=== PATIENT | female | born 1960 | race Caucasian/White ===

== ENCOUNTER 2018-02-28 20:44 | Emergency (ER) | payer BC ==
--- OUTSIDE RECORDS SUMMARY | 2018-02-28 20:49 | XMS REPORT ---
:1960 External Reference #:[id number] Author Organization [facility] Address [address] [place] [address] Phone [phone] Care Team Providers Name Role Phone Jorge Jacobson MD Primary Care Physician Unavailable Payers Type Date Identification Numbers Payment Provider Subscriber Medicare Primary Expires: Policy Number: Medicare Veronica Baca 2013 [id number] [employer] Group Number: [id number] [address] [address] PayID: [id number] [place] [address] Medigap Part B Policy Number: [employer] / Sanam Bone [id number] [facility] Group Number: [id number] [address] [address] PayID: [id number] [place] [address] Problems Description No Active Problems Family History Date Family Member(s) Problem(s) Comments Father Depression Father due to Prostate Cancer () Father Alcoholism Father Drug Addiction Father Hypertension Father Arthritis Mother due to Pancreatic Cancer () Children None Siblings 1 First Brother A&W Paternal Grandfather due to NV () Paternal Grandmother due to Heart Disease () Maternal Grandfather due to Heart Disease () Maternal Grandmother due to d/t blood clot () Maternal Grandmother Uterine Cancer Social History Type Date Description Comments Education Highest Level Completed, Master's Degree Marital Status Lives With Spouse Occupation Retired Cigarette Use Does Not Smoke Cigarettes Cigarette Use Former Cigarette Smoker 5-10 on/off 5-8 years Cigarettes Daily ETOH Use Consumes 1 glass of wine per day Recreational Drug Use Denies Drug Use Smoking Patient is a former smoker Daily Caffeine Consumes on average 2 cups of coffee per day Exercise Type/Frequency Exercises regularly Seat Belt/Car Seat Always uses seat belt Currently Active Patient is currently sexually active Contraceptive Methods Current methods include tubal ligation STD's HPV Allergies, Adverse Reactions, Alerts Date Description Reaction Status Severity Comments 06/29/2013 NKDA active Medications Medication Date Status Form Strength Qnty SIG Indications Ordering Provider No Active 02/22/2018 Active Unknown Medications No Active 12/15/2015 Hx Unknown Medications - 01/03/2017 No Active 06/29/2013 Hx Lexy Agustin, Medications - ANP-C 11/14/2013 Vitamin D-3 Hx Unknown - 12/15/2015 Multivitamins Hx Unknown - 12/15/2015 Fish Oil Hx Unknown - 12/22/2013 Aspir-81 Hx Unknown - 12/15/2015 Ambien Hx Unknown - 02/22/2018 Medications Administered in Office Medication Date Status Form Strength Qnty SIG Indications Ordering Provider PT SCRN Tbco Administered Injection Beulah Cason as Non User 018 MD Lorie Vital Signs Date Vital Result Comment 02/22/2018 BP Systolic 110 mmHg BP Diastolic 70 mmHg Height 66 inches 5'6" Weight 148.00 lb BMI (Body Mass Index) 23.9 kg/m2 Last Menstrual Period 2921917 1 Parity 0 01/03/2017 BP Systolic 114 mmHg BP Diastolic 60 mmHg Height 66 inches 5'6" Weight 148.00 lb BMI (Body Mass Index) 23.9 kg/m2 Last Menstrual Period 7488856 1 Parity 0 12/15/2015 BP Systolic 110 mmHg BP Diastolic 64 mmHg Height 66 inches 5'6" Weight 146.00 lb BMI (Body Mass Index) 23.6 kg/m2 Last Menstrual Period 5014247 1 Parity 0 05/24/2014 BP Systolic 104 mmHg BP Diastolic 66 mmHg Height 66 inches 5'6" Weight 148.00 lb BMI (Body Mass Index) 23.9 kg/m2 Last Menstrual Period 1355286 1 Parity 0 04/22/2014 BP Systolic 106 mmHg BP Diastolic 60 mmHg Height 66 inches 5'6" Weight 143.00 lb BMI (Body Mass Index) 23.1 kg/m2 Last Menstrual Period 3920224 1 Parity 0 01/22/2014 BP Systolic 104 mmHg BP Diastolic 68 mmHg Height 66 inches 5'6" Weight 144.00 lb BMI (Body Mass Index) 23.2 kg/m2 Last Menstrual Period 9887482 1 Parity 0 12/11/2013 BP Systolic 104 mmHg BP Diastolic 60 mmHg Height 66 inches 5'6" Weight 147.00 lb BMI (Body Mass Index) 23.7 kg/m2 Last Menstrual Period 8093808 1 Parity 0 11/14/2013 BP Systolic 102 mmHg BP Diastolic 64 mmHg Height 66 inches 5'6" Weight 147.00 lb BMI (Body Mass Index) 23.7 kg/m2 Last Menstrual Period 8427430 1 Parity 0 06/29/2013 BP Systolic 100 mmHg BP Diastolic 70 mmHg Height 66 inches 5'6" Weight 145.00 lb BMI (Body Mass Index) 23.4 kg/m2 Last Menstrual Period 1330353 1 Parity 0 Results Test Date Test Result H/L Range Note Laboratory test finding 01/03/2017 Cytology SEE RESULT BELOW 1 Human Papilloma Virus Rna Negative Negative 2 Laboratory test finding 12/15/2015 Cytology SEE RESULT BELOW 3 Human Papilloma Virus Rna Negative Negative 4 Laboratory test 06/21/2014 Surgical Pathology RUN DATE: finding <SEE NOTE> CBC Auto Diff 06/21/2014 White Blood Count 5.9 10^3/uL 4.8-10.8 Red Blood Count 3.98 10^6/uL Low 4.0-5.4 Hemoglobin 12.5 g/dL 12.0-16.0 Hematocrit 37 % 35-47 Mean Corpuscular Volume 92 fL 80-97 Mean Corpuscular Hemoglobin 31 pg 27-31 Mean Corpuscular HGB Conc 34 g/dL 31-36 Red Cell Distribution Width 13 % 10.5-15 Platelet Count 187 10^3/uL 150-450 Mean Platelet Volume 10 um3 7.4-10.4 Abs Neutrophils 3.7 10^3/uL 1.5-7.7 Abs Lymphocytes 1.6 10^3/uL 1.0-4.8 Abs Monocytes 0.4 10^3/uL 0-0.8 Abs Eosinophils 0.1 10^3/uL 0-0.6 Abs Basophils 0.1 10^3/uL 0-0.2 Abs Nucleated RBC 0 10^3/uL Granulocyte % 62.4 % 38-83 Lymphocyte % 27.7 % 25-47 Monocyte % 7.0 % 1-9 Eosinophil % 1.7 % 0-6 Basophil % 1.2 % 0-2 Nucleated Red Blood Cells % 0 Laboratory test 12/11/2013 Surgical Pathology RUN DATE: finding <SEE NOTE> Thyroid Function 11/14/2013 Thyroid Stim Hormone 1.8 mIU/L 0.3-5.0 7 Beryl Human Papilloma 07/02/2013 Human Papillomavirus See Comment 8 Source Human Papillomavirus High Risk Negative Negative 9 Laboratory test finding 06/29/2013 Cytology RUN DATE: <SEE neg / 10 NOTE> 1 SEE RESULT BELOW Name: SANAM BONE : [address]: Lexy Pinto Acct: [id number] Unit: [id number] AGE: 56 Location: [facility] Re01/03/17 SEX: F Status: REG REF SPEC: [id number] BOUBACAR: 01/03/17-[address] [facility] DR: Lexy Pinto REQ: [id number] RECD: 01/03/179 STATUS: SOUT _ ORDERED: IMAGE ANALYSIS, HPV/Thin Prep COMMENTS: [id number] FINAL DIAGNOSIS Negative for Intraepithelial lesion or Malignancy A. Ectocervical/Endocervical Specimen Adequacy: Satisfactory of evaluation Transformation zone component identified Patient Information: HPV: High risk HPV RNA testing regardless of pap results. Actual Specimen Date: 01/03/17 Last Menstrual Date: 06/10/15 Date of Last Specimen: 06/16/16 Post Menopausal?: Y Date Time Test Result Flag (u) Normal Range 01/03/17 0810 HPV RNA Negative Negative The high-risk HPV types detected by the assay include: 16, 18, 31, 33, 35, 39, 45, 51, 52, 56, 58, 59, 66, and 68. Signed (signature on file) WALTER Valdez ([facility]) 01/04 1529 This Pap test was evaluated with the assistance of the [employer] Test Imaging System. Due to cytologic findings at the terminal gauger supervisor microscope, comprehensive manual rescreening by a Sebd Teacher may be required. The Pap Smear is a screening test designed to aid in the detection of premalignant and malignant conditions of the uterine cervix. It is not a diagnostic procedure and should not be used as the sole means of detecting cervical cancer. Both false- positive and false- negative reports do occur. Depending on your risk status, a Pap smear should be obtained and evaluated every 1-3 years. END OF REPORT * ML=Testing performed at Main Lab DEPARTMENT OF PATHOLOGY, [address] [place] [address] Chaz Mcneil M.D. Director [facility] # [id number] 2 The high-risk HPV types detected by the assay include: 16, 18, 31, 33, 35, 39, 45, 51, 52, 56, 58, 59, 66, and 68. 3 SEE RESULT BELOW Name: SANAM BONE : [address]: Lexy Agustin SIZING MACHINE TENDER Acct: [id number] Unit: [id number] AGE: 55 Location: [facility] Re12/15/15 SEX: F Status: REG REF SPEC: [id number] BOUBACAR: 12/15/[address] [facility] DR: Lexy Agustin SIZING MACHINE TENDER REQ: [id number] RECD: 12/15/15 STATUS: SOUT _ ORDERED: IMAGE ANALYSIS, HPV/Thin Prep FINAL DIAGNOSIS Negative for Intraepithelial lesion or Malignancy A. Ectocervical/Endocervical Specimen Adequacy: Satisfactory of evaluation Transformation zone component identified Patient Information: HPV: High risk HPV RNA testing regardless of pap results. Actual Specimen Date: 12/15/15 Last Menstrual Date: 06/10/15 Date of Last Specimen: 06/29/13 Date Time Test Result Flag (u) Normal Range 12/15/15 0922 HPV RNA Negative Negative The high-risk HPV types detected by the assay include: 16, 18, 31, 33, 35, 39, 45, 51, 52, 56, 58, 59, 66, and 68. Signed (signature on file) WALTER Carter([facility]) 12/15 1311 This Pap test was evaluated with the assistance of the AltimetPrep Test Imaging System. Due to cytologic findings at the terminal gauger supervisor microscope, comprehensive manual rescreening by a Sebd Teacher may be required. The Pap Smear is a screening test designed to aid in the detection of premalignant and malignant conditions of the uterine cervix. It is not a diagnostic procedure and should not be used as the sole means of detecting cervical cancer. Both false- positive and false- negative reports do occur. Depending on your risk status, a Pap smear should be obtained and evaluated every 1-3 years. END OF REPORT * ML=Testing performed at Main Lab DEPARTMENT OF PATHOLOGY, [address] [place] [address] Chaz Mcneil M.D. Director [facility] # [id number] 4 The high-risk HPV types detected by the assay include: 16, 18, 31, 33, 35, 39, 45, 51, 52, 56, 58, 59, 66, and 68. 5 RUN DATE: 06/24/14 [facility] LAB LIVE PAGE 1 RUN TIME: [address] [place] [address] Specimen Inquiry Name: BETH BONECA : [address]: Jenn Bose MD Acct: [id number] Unit: [id number] AGE: 54 Location: [place] Re06/21/14 SEX: F Status: REG [facility] SPEC: [id number] BOUBACAR: 06/21/14- SUBM DR: Jenn Bose MD REQ: [id number] RECD: 06/21/14-1155 STATUS: SOUT _ ORDERED: LEVEL IV FINAL DIAGNOSIS Uterus, endometrium, curettings: A. Secretory endometrium with glandular and stromal breakdown. B. No evidence of hyperplasia or neoplasia. PRE-OPERATIVE DIAGNOSIS Post coital bleeding. GROSS DESCRIPTION The specimen is received in formalin labeled Sanam Bone, Endometrial Curettings, and consists of a 2.3 x 1.7 x 0.5 cm. aggregate of predominantly red-brown blood clot admixed with martinez-pink, irregular soft tissue fragments. Submitted entirely, one cassette. Signed (signature on file) Chaz Mcneil MD 1534 END OF REPORT * ML=Testing performed at Main Lab DEPARTMENT OF PATHOLOGY, [facility] [employer] [place] [address] Chaz Mcneil M.D. Director [facility] # [id number] 6 RUN DATE: 12/12/13 [facility] LAB LIVE PAGE 1 RUN TIME: [address] [place] [address] Specimen Inquiry Name: SMITHASANAM : [address]: Lexy Agustin CNP Acct: [id number] Unit: [id number] AGE: 53 Location: [facility] Re12/11/13 SEX: F Status: REG REF SPEC: [id number] BOUBACAR: 12/11/13-[address] [facility] DR: Lexy Agustin [facility] REQ: [id number] RECD: 12/11/13 STATUS: SOUT _ ORDERED: LEVEL IV FINAL DIAGNOSIS Uterus, endometrium, biopsy: A. Benign inactive endometrium. B. No evidence of hyperplasia or neoplasia. PRE-OPERATIVE DIAGNOSIS Post coital bleeding GROSS DESCRIPTION The specimen is received in formalin labeled TOMMY Abrams and consists of a 0.5 x 0.5 x 0.2 cm. aggregate of multiple, martinez-pink, irregular, soft tissue fragments. Submitted entirely, one cassette. Signed (signature on file) Chelsey Monique MD 02/20 1659 END OF REPORT * ML=Testing performed at Main Lab DEPARTMENT OF PATHOLOGY, [address] [place] [address] Chaz Mcneil M.D. Director [facility] Permit #[id number] 7 Test Performed by: [address] [address] Optics Test Technician: Daniel Brock III, M.D. 8 RESULT: Ectocervical/Endocervical 9 For types 16, 18, 31, 33, 35, 39, 45, 51, 52, 56, 58, 59 and 68. Test Performed by: [address] [address] Optics Test Technician: Daniel Brock III, M.D. 10 RUN DATE: 07/02/13 [facility] LAB LIVE PAGE 1 RUN TIME: [address] [place] [address] Specimen Inquiry Name: SARANIRALIMCKENZIESANAM : [address]: Lexy Agustin SIZING MACHINE TENDER Acct: [id number] Unit: [id number] AGE: 53 Location: [facility] Re06/29/13 SEX: F Status: REG REF SPEC: [id number] BOUBACAR: 06/29/13-[address] [facility] DR: Lexy Agustin SIZING MACHINE TENDER REQ: [id number] RECD: 06/29/13 STATUS: SOUT _ ORDERED: IMAGE ANALYSIS, HPV/Thin Prep FINAL DIAGNOSIS Negative for Intraepithelial lesion or Malignancy COMMENTS: Specimen sent to [facility] in [place], [place] on 07/02/13 by [id number] at 1245. Results will be reported separately. A. Ectocervical/Endocervical Specimen Adequacy: Satisfactory of evaluation Transformation zone component identified Patient Information: HPV: High risk HPV DNA testing regardless of pap results. Actual Specimen Date: 06/29/13 Last Menstrual Date: 05/18/13 Spec Date if unknown: 2011 Signed (signature on file) WALTER Wolfe ([facility]) 07/02/13 1452 This Pap test was evaluated with the assistance of the AltimetPrep Test Imaging System. Due to cytologic findings at the terminal gauger supervisor microscope, comprehensive manual rescreening by a Sebd Teacher may be required. The Pap Smear is a screening test designed to aid in the detection of premalignant and malignant conditions of the uterine cervix. It is not a diagnostic procedure and should not be used as the sole means of detecting cervical cancer. Both false- positive and false- negative reports do occur. Depending on your risk status, a Pap smear shoudl be obtained and evaluated every 1-3 years. END OF REPORT * ML=Testing performed at Main Lab DEPARTMENT OF PATHOLOGY, [address] [place] [address] Chaz Mcneil M.D. Director [facility] Permit #[id number] Procedures Date CPT Code Description Status 01/05/2018 Mammogram Completed 06/21/2014 07959 Hysteroscopy,D&C Completed 01/22/2014 27255 Echography Transvaginal Completed 12/11/2013 54096 Echography Transvaginal Completed 12/11/2013 55220 Biopsy Endometrial W/O Cervical Dilation Completed 02/07/2013 Colonoscopy Completed Encounters Type Date Location Provider CPT E/M Dx Office Visit 02/22/2018 1:00p [place] [address] Z01.411 N39.3 Office Visit 01/03/2017 8:00a [facility] BARBARA Buckner 29246 Z01.419 Office Visit 12/15/2015 8:40a [facility] BARBARA [place] 85460 Z01.419 Office Visit 05/24/2014 8:00a [place] [address] V72.83 626.7 Office Visit 04/22/2014 8:20a [facility] Office Lexy Agustin, ANP-C 26551 626.7 Office Visit 01/22/2014 10:00a [facility] Office Lexy Agustin, ANP-C 75230 620.2 Office Visit 12/11/2013 9:00a [facility] Lexy Agustin, ANP-C 03669 626.7 789.9 Office Visit 11/14/2013 9:40a [facility] Office Lexy Agustin, ANP-C 08137 626.8 V78.0 Office Visit 06/29/2013 9:20a [facility] Office Lexy Agustin, ANP-C 22747 V72.31 V76.2 Plan of Care 02/22/2018 - Lorie Cason MDZ01.411 Encntr for hollow tile partition erector exam (general) (routine) w abnormal findingsComments:Maintain routine exercise and healthy diet. Incorporate weight bearing exercise (walking/running with weights) to help prevent osteoporosis. Try to incorporate calcium into your regular diet. Take Vitamin D supplementation(600-800 IU/day) to assist absorption of the calcium. Call to schedule your yearly mammogram. Once it is scheduled call the office to let us know and we will send an order.Perform periodic breast exams to become familiar with your breast tissue so you are more likely to notice something abnormal. Return for annual exam in 1 year or earlier if concerns arise. Routine cervical cancer screening has changed. For low-risk women pap smears are no longer recommended after 65 years.N39.3 Stress incontinence (female) (male)Comments:Call to schedule an appointment with [facility] ([phone]). Try to do routine Kegel exercises.
--- NOTE | 2018-02-28 20:57 | UC ---
Skin Complaint HPI - HPI Summary HPI Summary: 57 yo female presents with cat ?bite vs scratch to left forearm. 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 She stepped in and broke up the fight. Her cat bit or scratched her on her left forearm - she is unsure as it happened so fast. Her cat is UTD on vaccines. She took her cat to the vet to be checked and vet recommended pt be evaluated and placed on anbx. Denies fever, chills, bleeding, or drainage. - History of Current Complaint Time Seen by Provider: 02/28/18 20:57 Stated Complaint: Cat bite Hx Obtained From: Patient Onset/Duration: Sudden Onset Skin Exposure Onset/Duration: Hours Ago Current Severity: None - Allergy/Home Medications Allergies/Adverse Reactions: Allergies Allergy/AdvReac Type Severity Reaction Status Date / Time No Known Allergies Allergy Verified 02/28/18 20:53 Review of Systems Constitutional: Negative Skin: Other - Cat bite/scratch to left forearm Respiratory: Negative Cardiovascular: Negative Neurovascular: Negative Musculoskeletal: Negative Neurological: Negative Psychological: Negative All Other Systems Reviewed And Are Negative: Yes PMH/Surg Hx/FS Hx/Imm Hx - Additional Past Medical History Additional PMH: None Previously Healthy: Yes - Surgical History Surgical History: Yes Surgery Procedure, Year, and Place: 1997 [facility]. FB REMOVED FROM FOOT. BONE GROWTH REMOVED FROM HUMERUS 1990 - Family History Known Family History: Positive: None - Social History Occupation: Employed Full-time Lives: With Family Alcohol Use: Daily Alcohol Amount: 1/DAY Substance Use Type: None Smoking Status (MU): Former Smoker When Did the Patient Quit Smoking/Using Tobacco: 1990 Physical Exam - Summary Physical Exam Summary: GENERAL: NAD. WDWN. No pain distress. SKIN: Left forearm: 4 puncture wounds consistent with cat bite. NTTP. No edema or erythema. No streaking, bleeding, or drainage. NECK: Supple. Nontender. No lymphadenopathy. CHEST: No accessory muscle use. Breathing comfortably and in no distress. CV: RRR. Without m/r/g. NEURO: Alert. CN II-XII grossly intact. PSYCH: Age appropriate behavior. Triage Information Reviewed: Yes Vital Signs: Vital Signs: Temp Pulse Resp BP Pulse Ox 98.6 F 68 18 103/73 100 02/28/18 20:52 02/28/18 20:52 02/28/18 20:52 02/28/18 20:52 02/28/18 20:52 Course/Dx - Course Course Of Treatment: tdap updated today. Will place her on augmentin and f/u if develops swelling/pain/drainage/redness. - Diagnoses Provider Diagnoses: Cat bite left arm Discharge - Sign-Out/Discharge Documenting (check all that apply): Discharge/Admit/Transfer - Discharge Plan Condition: Stable Disposition: HOME Prescriptions: Amoxicillin/Clavulanate TAB* [Augmentin TAB 875*] 875 mg PO BID #14 tab Patient Education Materials: Animal Bite (ED) Referrals: Mayito Alvarado MD [Primary Care Provider] - Additional Instructions: If you develop a fever, shortness of breath, chest pain, new or worsening symptoms - please call your PCP or go to the ED. - Billing Disposition and Condition Condition: STABLE Disposition: HOME
[2018-02-28 20:58] VITALS: BP 103/73
[2018-02-28] MEDS ORDERED: Tetan/Diph/Pertus SYR(Tdap)* 0.5 ML SYR(BOOSTRIX) use SYR IM ONE (21:13)
[2018-02-28] MEDS ORDERED: Amoxicillin/Clavulanate TAB* 875 MG PO ONE (21:13)
== END 2018-02-28 21:23 | disposition home or self-care (01) ==
LOC: UCEAST 20:44
DX: S51.832A Puncture wound without foreign body of left forearm, initial encounter (principal); S50.812A Abrasion of left forearm, initial encounter; W55.01XA Bitten by cat, initial encounter; Y93.89 Activity, other specified; Y92.9 Unspecified place or not applicable; Z23 Encounter for immunization; Z87.891 Personal history of nicotine dependence
CPT/HCPCS: 90472; 90715; 99202; A9270-GY; G0463